=== PATIENT | female | born 1975 | race African-American/Black ===

== ENCOUNTER 2016-06-02 10:44 | Emergency (ER) | payer OTHER, SELFPAY ==
[2016-06-02] MEDS ORDERED: Dexamethasone 20 MG/5 ML VIAL ONE (11:28)
--- NOTE | 2016-06-02 11:56 | RAD ---
PA AND LATERAL VIEWS OF CHEST: Date: 06/02/16 HISTORY: Dyspnea, cough. FINDINGS: Comparison made with exam of 01/03/16. The heart size is normal. The lungs are well expanded without focal areas of consolidation, pneumoth orax, or pleural effusions. There are degenerative changes in the spine. IMPRESSION: No radiographic evidence of acute cardiopulmonary process. POS: [facility]
== END 2016-06-02 12:07 | disposition home or self-care (01) ==
LOC: NAV ERS 10:44
DX: J20.9 Acute bronchitis, unspecified (principal); I10 Essential (primary) hypertension; E11.9 Type 2 diabetes mellitus without complications; Z79.4 Long term (current) use of insulin; Z79.899 Other long term (current) drug therapy; G43.909 Migraine, unspecified, not intractable, without status migrainosus
CPT/HCPCS: 71020; 96372; J1100

== ENCOUNTER 2016-06-07 15:21 | Emergency (ER) | payer OTHER ==
[~2016-06-07 15:21] MED LIST: Iopamidol 370 76% 100 ML VIAL ONE
[2016-06-07] MEDS ORDERED: Ketorolac Tromethamine 30 MG/ML VIAL ONE (15:43)
[2016-06-07] MEDS ORDERED: Sodium Chloride 0.9% 1,000 ML ONE (15:43)
[2016-06-07] MEDS ORDERED: Acetaminophen 500 MG TAB ONE (15:43)
--- NOTE | 2016-06-07 16:06 | RAD ---
PA AND LATERAL CHEST: Comparison: 06-02-16 History: Cough, body aches. FINDINGS: Heart size appears borderline to minimally enlarged. The mediastinum appears unremarkable. The jackie gs are clear of infiltrates. IMPRESSION: Borderline heart size. POS: [facility]
[2016-06-07 16:11] LABS: Bilirubin Negative (Negative); Blood, Urine Trace (Negative); Glucose, Urine (Dipstick) Negative (Negative); Ketone, Urine Negative (Negative); Nitrite Negative (Negative); Protein, Urine (Dipstick) Negative (Neg-Trace); Urobilinogen 0.2 mg/dL (0.2-1.0)
[2016-06-07 16:18] LABS: Lactic Acid - Sepsis 1.8 mmol/L (0.5-2.2)
[2016-06-07 16:21] LABS: Bacteria/HPF 2+ HPF (None Seen); RBC/HPF 0-3 HPF (0-3); Squamous Epithelial 21-50 HPF (0-3); WBC/HPF None Seen HPF (0-3)
[2016-06-07 16:23] LABS: ALT (SGPT) 12 U/L (0-55); AST (SGOT) 11 U/L (5-34); Alkaline Phosphatase 71 U/L (40-150); Anion Gap 14 mmol/L (10-20); BUN (Urea Nitrogen) 9 mg/dL (7.0-18.7); Bilirubin, Total 0.7 mg/dL (0.2-1.2); Calc. Creatinine Clearance 0 mL/min (70-130); Calcium 8.6 mg/dL (7.8-10.44); Carbon Dioxide 24 mmol/L (22-29); Chloride 105 mmol/L (98-107); Estimated GFR-MDRD Greater than 90; Globulin 3.3 g/dL (2.4-3.5); Lipase 18 U/L (8-78); Protein, Total 6.7 g/dL (6.0-8.3)
[2016-06-07 16:28] LABS: #Lymphocytes 0.9 thou/uL (1.20-3.40); #Monocytes 0.5 thou/uL (0.11-0.59); #Neutrophils 4.4 thou/uL (1.40-6.50); %Basophils 0.4 % (0.0-1.0); %Eosinophils 0.3 % (0.0-10.0); %Lymphocytes 14.8 % (21.0-51.0); %Monocytes 8.1 % (0.0-10.0); Hematocrit 33.3 % (36.0-47.0); Hypochromia SLIGHT = 6-15 cells (100X) (0-5/hpf); Mean Platelet Volume 6.8 fL (7.4-10.4); Microcytosis SLIGHT = 6-15 cells (100X) (0-5/hpf); Polychromasia SLIGHT = 2-3 cells (100X) (0-2/hpf); Red Blood Cell (RBC) Count 4.39 mill/uL (4.20-5.40); White Blood Cell (WBC) Count 5.8 thou/uL (4.8-10.8)
--- NOTE | 2016-06-07 18:35 | CT ---
ABDOMEN AND PELVIC CT SCAN WITH IV CONTRAST: 06/07/16 HISTORY: 41-year-old female with cough and bodyaches. History of diverticulitis, patient did have some nausea and vomiting at the time of injection. Postcontrast imaging of the abdomen and pelvis is performed. There is slight delay in the initiating the scan because of the patient's nausea and vomiting at the time of injection resulting in dense c ontrast opacification of the renal collecting systems and ureters and bladder. The visualized liver, gallbladder, pancreas, spleen, adrenal glands are unremarkable. Nonobstructing renal calculi cannot be excluded because of the dense contrast. There is no evidence for obstructin g calculus. Normal appearing appendix. Unremarkable uterus and adnexa. No abscess or abnormal flu id collection. IMPRESSION: Unremarkable abdomen and pelvic CT scan. POS: [facility]
[2016-06-07] MEDS ORDERED: Amoxicillin/Potassium Clav 875 MG TAB ONE (18:59)
== END 2016-06-07 19:02 | disposition home or self-care (01) ==
LOC: NAV ERS 15:21
DX: M54.5 Low back pain (principal); R10.13 Epigastric pain; R10.11 Right upper quadrant pain; E11.9 Type 2 diabetes mellitus without complications; I10 Essential (primary) hypertension; G43.909 Migraine, unspecified, not intractable, without status migrainosus; Z79.4 Long term (current) use of insulin; Z79.84 Long term (current) use of oral hypoglycemic drugs
CPT/HCPCS: 71020; 74177; 80053; 81003; 81015; 83605; 83690; 85025; 87086; 96361; 96374; J1885; J7050

== ENCOUNTER 2016-09-12 12:16 | Emergency (ER) | payer MEDICAID, OTHER ==
[2016-09-12] MEDS ORDERED: Ketorolac Tromethamine 30 MG/ML VIAL ONE ×2 (12:39→12:40)
--- NOTE | 2016-09-12 14:01 | RAD ---
TWO VIEWS OF THE CHEST: COMPARISON: 06/07/16. HISTORY: Cough for 2 weeks. FINDINGS: Two views of the chest show normal sized cardiomediastinal silhouette. There is no evidence of conso lidation, mass, or pleural effusion. Degenerative changes are seen in the spine. IMPRESSION: No evidence of acute cardiopulmonary disease. POS: [facility]
== END 2016-09-12 13:22 | disposition home or self-care (01) ==
LOC: NAV ERS 12:16
DX: G89.29 Other chronic pain (principal); J06.9 Acute upper respiratory infection, unspecified; M54.5 Low back pain; E78.5 Hyperlipidemia, unspecified; E78.00 Pure hypercholesterolemia, unspecified; I10 Essential (primary) hypertension; E66.9 Obesity, unspecified; E11.9 Type 2 diabetes mellitus without complications; Z79.899 Other long term (current) drug therapy; Z79.4 Long term (current) use of insulin
CPT/HCPCS: 71020; 96372; J1885

== ENCOUNTER 2016-11-28 21:32 | Emergency (ER) | payer SELFPAY ==
[2016-11-28] MEDS ORDERED: HYDROcodone/Acetaminophen 5/325 mg Tablet ONE (21:54)
[2016-11-28] MEDS ORDERED: Orphenadrine Citrate 60 MG/2 ML VIAL ONE (21:54)
[2016-11-28] MEDS ORDERED: predniSONE 20 MG TAB ONE (21:55)
== END 2016-11-28 22:19 | disposition home or self-care (01) ==
LOC: NAV ERS 21:32
DX: M32.9 Systemic lupus erythematosus, unspecified (principal); E11.8 Type 2 diabetes mellitus with unspecified complications; E78.5 Hyperlipidemia, unspecified; I10 Essential (primary) hypertension; E66.9 Obesity, unspecified; G43.909 Migraine, unspecified, not intractable, without status migrainosus; Z79.899 Other long term (current) drug therapy; Z79.4 Long term (current) use of insulin
CPT/HCPCS: 36416; 96372; J2360; J7506

== ENCOUNTER 2017-01-03 21:53 | Emergency (ER) | payer SELFPAY ==
[2017-01-03] MEDS ORDERED: Ketorolac Tromethamine 30 MG/ML VIAL ONE (22:27)
--- NOTE | 2017-01-03 22:33 | RAD ---
PORTABLE AP CHEST X-RAY: 01/03/17 HISTORY: Dyspnea. Patient feels as if there is a knot in mid sternal chest region. Difficulty breathing when lying down or walking. COMPARISON: 01/03/16. FINDINGS: The cardiac silhouette and pulmonary vasculature are within normal limits. The lungs remain clear. T here has been no interval change from the prior exam. IMPRESSION: No acute cardiopulmonary process. POS: [facility]
[2017-01-03 22:43] LABS: #Eosinphils 0.1 thou/uL (0.0-0.7); #Monocytes 0.3 thou/uL (0.11-0.59); #Neutrophils 1.9 thou/uL (1.40-6.50); %Basophils 0.6 % (0.0-1.0); %Eosinophils 2.5 % (0.0-10.0); %Lymphocytes 30.9 % (21.0-51.0); %Monocytes 9.5 % (0.0-10.0); %Neutrophils 56.4 % (42.0-75.0); Hemoglobin 10.1 g/dL (12.0-16.0); Hypochromia SLIGHT = 6-15 cells (100X) (0-5/hpf); MDiff Complete? YES; Mean Corpuscular HGB CONC 31.7 g/dL (32.0-36.0); Mean Corpuscular Hemoglobin 23.7 pg (27.0-31.0); Mean Corpuscular Volume 74.7 fl (81.0-99.0); Microcytosis SLIGHT = 6-15 cells (100X) (0-5/hpf); PLT Morphology Comment Appears Adequate; Platelet Count 176 thou/uL (130-400); RBC Distribution Width 14.2 % (11.5-14.5); Red Blood Cell (RBC) Count 4.25 mill/uL (4.20-5.40); White Blood Cell (WBC) Count 3.3 thou/uL (4.8-10.8)
[2017-01-03 22:44] LABS: ALT (SGPT) 21 U/L (8-55); AST (SGOT) 27 U/L (5-34); Albumin 3.6 g/dL (3.5-5.0); Alkaline Phosphatase 90 U/L (40-150); Anion Gap 15 mmol/L (10-20); BUN (Urea Nitrogen) 7 mg/dL (7.0-18.7); Bilirubin, Total 0.4 mg/dL (0.2-1.2); CK (CPK) 119 U/L (29-168); Calc. Creatinine Clearance 0 mL/min (70-130); Calcium 8.9 mg/dL (7.8-10.44); Carbon Dioxide 21 mmol/L (22-29); Chloride 108 mmol/L (98-107); Estimated GFR-MDRD 88; Globulin 3.7 g/dL (2.4-3.5); Glucose 94 mg/dL (70-105); Potassium 3.2 mmol/L (3.5-5.1); Protein, Total 7.3 g/dL (6.0-8.3); Sodium 141 mmol/L (136-145)
[2017-01-03 22:45] LABS: CKMB 0.4 ng/mL (0-6.6); Troponin I Less than 0.010 ng/mL (< 0.028)
[2017-01-03] MEDS ORDERED: Potassium Chloride 20 MEQ TAB ONE (23:00)
== END 2017-01-03 23:08 | disposition home or self-care (01) ==
LOC: NAV ERS 21:53
DX: R07.2 Precordial pain (principal); M32.9 Systemic lupus erythematosus, unspecified; E11.9 Type 2 diabetes mellitus without complications; E78.5 Hyperlipidemia, unspecified; I10 Essential (primary) hypertension; Z79.4 Long term (current) use of insulin; Z79.52 Long term (current) use of systemic steroids; Z79.899 Other long term (current) drug therapy
CPT/HCPCS: 71010; 80053; 82550; 82553; 84484; 85025; 93005; 96374; J1885

== ENCOUNTER 2017-03-18 13:39 | Emergency (ER) | payer SELFPAY ==
[2017-03-18] MEDS ORDERED: Ketorolac Tromethamine 60 MG/2 ML VIAL ONE (13:56)
== END 2017-03-18 14:57 | disposition home or self-care (01) ==
LOC: NAV ERS 13:39
DX: B34.9 Viral infection, unspecified (principal); E11.9 Type 2 diabetes mellitus without complications; E78.5 Hyperlipidemia, unspecified; I10 Essential (primary) hypertension; G43.909 Migraine, unspecified, not intractable, without status migrainosus; Z79.4 Long term (current) use of insulin; Z79.899 Other long term (current) drug therapy
CPT/HCPCS: 96372; J1885

== ENCOUNTER 2017-03-31 22:26 | Emergency (ER) | payer SELFPAY ==
[2017-03-31] MEDS ORDERED: Ibuprofen 800 MG TAB ONE (22:47)
== END 2017-03-31 23:09 | disposition home or self-care (01) ==
LOC: NAV ERS 22:26
DX: J02.9 Acute pharyngitis, unspecified (principal); E11.9 Type 2 diabetes mellitus without complications; E78.5 Hyperlipidemia, unspecified; I10 Essential (primary) hypertension; G43.909 Migraine, unspecified, not intractable, without status migrainosus; Z79.899 Other long term (current) drug therapy
CPT/HCPCS: 87081; 87430; 99283

== ENCOUNTER 2017-04-17 14:37 | Emergency (ER) | payer SELFPAY | END 2017-04-17 15:25 | disposition home or self-care (01) | LOC: NAV ERS 14:37 | DX: J02.9 Acute pharyngitis, unspecified (principal); M32.9 Systemic lupus erythematosus, unspecified; E11.9 Type 2 diabetes mellitus without complications; E78.5 Hyperlipidemia, unspecified; I10 Essential (primary) hypertension; G43.909 Migraine, unspecified, not intractable, without status migrainosus; Z79.4 Long term (current) use of insulin; Z79.52 Long term (current) use of systemic steroids; Z79.899 Other long term (current) drug therapy | CPT/HCPCS: 87081; 87430; 99283 ==

== ENCOUNTER 2017-08-20 16:20 | Emergency (ER) | payer SELFPAY ==
[2017-08-20] MEDS ORDERED: Sodium Chloride 0.9% 1,000 ML ONE (16:56)
[2017-08-20] MEDS ORDERED: Sodium Chloride 0.9% 0 ML ONE (16:56)
[2017-08-20] MEDS ORDERED: Metoclopramide HCl 10 MG/2 ML VIAL ONE (16:56)
[2017-08-20] MEDS ORDERED: Ketorolac Tromethamine 30 MG/ML VIAL ONE (16:58)
[2017-08-20 17:11] LABS: Bilirubin Negative (Negative); Blood, Urine Negative (Negative); Glucose, Urine (Dipstick) Negative (Negative); Leukocyte Negative (Negative); Nitrite Negative (Negative); Protein, Urine (Dipstick) Negative (Neg-Trace); Urobilinogen 0.2 mg/dL (0.2-1.0)
[2017-08-20 17:14] LABS: Clarity SL HAZY (Clear)
[2017-08-20] MEDS ORDERED: diphenhydrAMINE 50 MG/ML VIAL ONE (17:14)
[2017-08-20 17:25] LABS: PTT 26.9 SEC (22.9-36.1)
[2017-08-20 17:26] LABS: #Lymphocytes 0.9 thou/uL (1.20-3.40); #Monocytes 0.4 thou/uL (0.11-0.59); #Neutrophils 3.1 thou/uL (1.40-6.50); %Basophils 0.4 % (0.0-1.0); %Eosinophils 0.7 % (0.0-10.0); %Lymphocytes 19.8 % (21.0-51.0); %Monocytes 8.7 % (0.0-10.0); %Neutrophils 70.5 % (42.0-75.0); Mean Corpuscular Hemoglobin 23.3 pg (27.0-31.0); Mean Corpuscular Volume 75.3 fl (81.0-99.0); Mean Platelet Volume 8.7 fL (7.4-10.4); Platelet Count 156 thou/uL (130-400); RBC Distribution Width 14.4 % (11.5-14.5); Red Blood Cell (RBC) Count 5.14 mill/uL (4.20-5.40); White Blood Cell (WBC) Count 4.4 thou/uL (4.8-10.8)
[2017-08-20 17:28] LABS: BHCG - Serum Negative (NEGATIVE); Pregs Control Bar Appear? YES (CONTROL BAR)
[2017-08-20 17:35] LABS: ALT (SGPT) 17 U/L (8-55); AST (SGOT) 18 U/L (5-34); Albumin 3.9 g/dL (3.5-5.0); Alkaline Phosphatase 91 U/L (40-150); Anion Gap 15 mmol/L (10-20); BUN (Urea Nitrogen) 11 mg/dL (7.0-18.7); Bilirubin, Total 0.6 mg/dL (0.2-1.2); Calc. Creatinine Clearance 0 mL/min (70-130); Calcium 9.5 mg/dL (7.8-10.44); Carbon Dioxide 24 mmol/L (22-29); Chloride 103 mmol/L (98-107); Estimated GFR-MDRD 90; Globulin 4.3 g/dL (2.4-3.5); Glucose 79 mg/dL (70-105); Potassium 3.6 mmol/L (3.5-5.1); Protein, Total 8.2 g/dL (6.0-8.3); Sodium 138 mmol/L (136-145)
--- NOTE | 2017-08-20 18:20 | CT ---
NONCONTRAST CT HEAD: Date: 08/20/17 HISTORY: Headache. COMPARISON: 08/24/15. FINDINGS: There is no evidence of a hemorrhage, acute infarction, mass effect, or midline shift. Ventricular sy stem is stable in size and appearance compared to prior exam. There has been no interval change from prior study. IMPRESSION: No acute intracranial abnormality is demonstrated. POS: [facility]
== END 2017-08-20 18:05 | disposition home or self-care (01) ==
LOC: NAV ERS 16:20
DX: R51 Headache (principal); E11.9 Type 2 diabetes mellitus without complications; I10 Essential (primary) hypertension; M35.9 Systemic involvement of connective tissue, unspecified; M32.9 Systemic lupus erythematosus, unspecified; Z79.899 Other long term (current) drug therapy
CPT/HCPCS: 70450; 80053; 81003; 84703; 85025; 85610; 85730; 96361; 96374; 96375; J1200; J1885; J2765; J7050

== ENCOUNTER 2017-09-25 14:15 | Emergency (ER) | payer SELFPAY ==
[2017-09-25] MEDS ORDERED: predniSONE 20 MG TAB ONE (15:14)
[2017-09-25] MEDS ORDERED: HYDROcodone/Acetaminophen 5/325 mg Tablet ONE (15:14)
[2017-09-25 15:46] LABS: #Lymphocytes 0.8 thou/uL (1.20-3.40); #Monocytes 0.6 thou/uL (0.11-0.59); #Neutrophils 3.5 thou/uL (1.40-6.50); %Basophils 0.6 % (0.0-1.0); %Eosinophils 0.1 % (0.0-10.0); %Neutrophils 70.4 % (42.0-75.0); Anisocytosis SLIGHT = 6-15 cells (100X) (0-5/hpf); Hypochromia SLIGHT = 6-15 cells (100X) (0-5/hpf); MDiff Complete? YES; Mean Corpuscular Hemoglobin 23.5 pg (27.0-31.0); Mean Corpuscular Volume 75.8 fl (81.0-99.0); Mean Platelet Volume 9.6 fL (7.4-10.4); Microcytosis SLIGHT = 6-15 cells (100X) (0-5/hpf); PLT Morphology Comment Appears Adequate; Platelet Count 179 thou/uL (130-400); Poikilocytosis SLIGHT = 6-15 cells (100X) (0-5/hpf); RBC Distribution Width 14.3 % (11.5-14.5); White Blood Cell (WBC) Count 4.9 thou/uL (4.8-10.8)
[2017-09-25 15:47] LABS: ALT (SGPT) 13 U/L (8-55); AST (SGOT) 15 U/L (5-34); Albumin 3.8 g/dL (3.5-5.0); Alkaline Phosphatase 77 U/L (40-150); Anion Gap 13 mmol/L (10-20); BUN (Urea Nitrogen) 13 mg/dL (7.0-18.7); Bilirubin, Total 0.4 mg/dL (0.2-1.2); Calc. Creatinine Clearance 0 mL/min (70-130); Calcium 9.2 mg/dL (7.8-10.44); Carbon Dioxide 25 mmol/L (22-29); Chloride 103 mmol/L (98-107); Estimated GFR-MDRD 87; Globulin 4.3 g/dL (2.4-3.5); Glucose 74 mg/dL (70-105); Potassium 3.4 mmol/L (3.5-5.1); Protein, Total 8.1 g/dL (6.0-8.3); Sodium 138 mmol/L (136-145)
[2017-09-25 15:51] LABS: CKMB 0.3 ng/mL (0-6.6); Troponin I Less than 0.010 ng/mL (< 0.028)
--- NOTE | 2017-09-25 15:54 | RAD ---
PORTABLE AP CHEST X-RAY: 09/25/2017 HISTORY: Difficulty breathing and chest tightness. Symptoms started this morning and are intermittent. COMPARISON: 01/03/2017 FINDINGS: The cardiac silhouette and the bronchovascular markings are accentuated by the shallow depth of inspi ration and the portable technique. The lungs remain clear. There has been no interval change from t he prior exam. IMPRESSION: No acute cardiopulmonary process. POS: [facility]
== END 2017-09-25 16:35 | disposition home or self-care (01) ==
LOC: NAV ERS 14:15
DX: M32.9 Systemic lupus erythematosus, unspecified (principal); E11.9 Type 2 diabetes mellitus without complications; I10 Essential (primary) hypertension; Z79.899 Other long term (current) drug therapy; Z79.4 Long term (current) use of insulin
CPT/HCPCS: 36415; 71045; 80053; 82553; 84484; 85025; 93005; J7506

== ENCOUNTER 2017-10-13 21:57 | Emergency (ER) | payer SELFPAY ==
[2017-10-13] MEDS ORDERED: AMOXicillin 250 MG CAP ONE (22:11)
== END 2017-10-13 22:16 | disposition home or self-care (01) ==
LOC: NAV ERS 21:57
DX: J06.9 Acute upper respiratory infection, unspecified (principal); I10 Essential (primary) hypertension; E11.9 Type 2 diabetes mellitus without complications; Z79.4 Long term (current) use of insulin; Z79.899 Other long term (current) drug therapy
CPT/HCPCS: 99283

== ENCOUNTER 2017-11-02 19:26 | Emergency (ER) | payer SELFPAY ==
--- NOTE | 2017-11-02 20:00 | RAD ---
CHEST TWO VIEW 11/02/17 HISTORY: Lupus, flu-like symptoms. COMPARISON: Radiographs 2017. FINDINGS: The lungs are clear. No pneumothorax or effusion. The cardiac silhouette and mediastinal contours are within normal limits. IMPRESSION: No acute intrathoracic abnormality. POS: [facility]
[2017-11-02] MEDS ORDERED: Ketorolac Tromethamine 30 MG/ML VIAL ONE (20:01)
== END 2017-11-02 20:30 | disposition home or self-care (01) ==
LOC: NAV ERS 19:26
DX: J20.9 Acute bronchitis, unspecified (principal); M32.9 Systemic lupus erythematosus, unspecified; K12.1 Other forms of stomatitis; E11.9 Type 2 diabetes mellitus without complications; I10 Essential (primary) hypertension; E66.9 Obesity, unspecified; Z79.4 Long term (current) use of insulin; Z79.899 Other long term (current) drug therapy
CPT/HCPCS: 71046; 96372; J1885

== ENCOUNTER 2018-05-15 20:12 | Emergency (ER) | payer SELFPAY ==
[2018-05-15] MEDS ORDERED: Ondansetron ODT 4 MG TAB ONE (21:06)
[2018-05-15] MEDS ORDERED: AMOXicillin 250 MG CAP ONE (21:29)
== END 2018-05-15 21:35 | disposition home or self-care (01) ==
LOC: NAV ERS 20:12
DX: J01.90 Acute sinusitis, unspecified (principal); E11.9 Type 2 diabetes mellitus without complications; I10 Essential (primary) hypertension; Z79.899 Other long term (current) drug therapy
CPT/HCPCS: 87804; 99283; Q0162

== ENCOUNTER 2018-05-26 12:01 | Emergency (ER) | payer SELFPAY | END 2018-05-26 12:50 | disposition home or self-care (01) | LOC: NAV ERS 12:01 | DX: J01.90 Acute sinusitis, unspecified (principal); E11.9 Type 2 diabetes mellitus without complications; I10 Essential (primary) hypertension; E66.9 Obesity, unspecified; Z79.4 Long term (current) use of insulin; Z79.899 Other long term (current) drug therapy | CPT/HCPCS: 99283 ==

== ENCOUNTER 2018-11-10 17:53 | Emergency (ER) | payer SELFPAY | END 2018-11-10 19:26 | disposition home or self-care (01) | LOC: NAV ERS 17:53 | DX: J20.9 Acute bronchitis, unspecified (principal); J06.9 Acute upper respiratory infection, unspecified; R21 Rash and other nonspecific skin eruption; E11.9 Type 2 diabetes mellitus without complications; I10 Essential (primary) hypertension; E66.9 Obesity, unspecified; Z79.4 Long term (current) use of insulin; Z79.899 Other long term (current) drug therapy | CPT/HCPCS: 87081; 87430; 87804; 99283 ==

== ENCOUNTER 2018-11-25 21:11 | Emergency (ER) | payer SELFPAY | END 2018-11-25 21:30 | disposition home or self-care (01) | LOC: NAV ERS 21:11 | DX: S91.301A Unspecified open wound, right foot, initial encounter (principal); E11.9 Type 2 diabetes mellitus without complications; Z79.4 Long term (current) use of insulin; I10 Essential (primary) hypertension; E66.9 Obesity, unspecified; Z79.899 Other long term (current) drug therapy; Z79.52 Long term (current) use of systemic steroids; X58.XXXA Exposure to other specified factors, initial encounter | CPT/HCPCS: 99283 ==

== ENCOUNTER 2018-12-09 00:01 | Emergency (ER) | payer SELFPAY ==
[2018-12-09] MEDS ORDERED: Ondansetron PF 4 MG/2 ML Vial ONE (00:30)
[2018-12-09 00:31] LABS: Bilirubin Negative (Negative); Blood, Urine Moderate (Negative); Clarity Clear (Clear); Glucose, Urine (Dipstick) Negative (Negative); Leukocyte Negative (Negative); Nitrite Negative (Negative); Protein, Urine (Dipstick) Negative (Neg-Trace); Urobilinogen 0.2 mg/dL (Less than 2)
[2018-12-09 00:36] LABS: Bacteria/HPF None Seen HPF (None Seen); RBC/HPF 21-50 HPF (0-3); WBC/HPF 0-3 HPF (0-3)
[2018-12-09 00:46] LABS: #Basophils 0.1 thou/uL (0.0-0.2); #Lymphocytes 1.1 thou/uL (1.20-3.40); #Monocytes 0.5 thou/uL (0.11-0.59); #Neutrophils 3.5 thou/uL (1.40-6.50); %Eosinophils 0.5 % (0.0-10.0); %Monocytes 9.4 % (0.0-10.0); Hemoglobin 11.2 g/dL (12.0-16.0); Hypochromia SLIGHT = 6-15 cells (100X) (0-5/hpf); MDiff Complete? YES; Mean Corpuscular HGB CONC 31.1 g/dL (32.0-36.0); Mean Corpuscular Hemoglobin 23.7 pg (27.0-31.0); Mean Corpuscular Volume 76.3 fL (78.0-98.0); Mean Platelet Volume 6.5 fL (7.4-10.4); Ovalocytes SLIGHT = 2-5 cells (100X) (0-1/hpf); Platelet Count 216 thou/uL (130-400); Platelet Morphology Comment Appears Adequate; RBC Distribution Width 14.6 % (11.5-14.5); Spherocytes SLIGHT = 1-5 cells (100X) (None Seen); Stomatocytes SLIGHT = 2-5 cells (100X) (0-1/hpf); Target Cells SLIGHT = 2-5 cells (100X) (0-1/hpf); White Blood Cell (WBC) Count 5.1 thou/uL (4.8-10.8)
[2018-12-09 00:50] LABS: ALT (SGPT) 16 U/L (8-55); AST (SGOT) 18 U/L (5-34); Albumin 4.2 g/dL (3.5-5.0); Alkaline Phosphatase 69 U/L (40-150); Anion Gap 16 mmol/L (10-20); BUN (Urea Nitrogen) 11 mg/dL (7.0-18.7); Bilirubin, Total 0.5 mg/dL (0.2-1.2); Calc. Creatinine Clearance 0 mL/min (70-130); Calcium 9.5 mg/dL (7.8-10.44); Carbon Dioxide 19 mmol/L (22-29); Chloride 107 mmol/L (98-107); Estimated GFR-MDRD 83; Globulin 3.8 g/dL (2.4-3.5); Glucose 98 mg/dL (70-105); Lipase 24 U/L (8-78); Potassium 3.9 mmol/L (3.5-5.1); Sodium 138 mmol/L (136-145)
[2018-12-09] MEDS ORDERED: Sodium Chloride 0.9% 1,000 ML BAG ONE (09:00)
== END 2018-12-09 01:12 | disposition home or self-care (01) ==
LOC: NAV ERS 00:01
DX: R11.2 Nausea with vomiting, unspecified (principal); R10.9 Unspecified abdominal pain; R19.7 Diarrhea, unspecified; R31.29 Other microscopic hematuria; E11.9 Type 2 diabetes mellitus without complications; I10 Essential (primary) hypertension; E66.9 Obesity, unspecified; Z79.899 Other long term (current) drug therapy; Z79.4 Long term (current) use of insulin
CPT/HCPCS: 36415; 80053; 81003; 81015; 83690; 85025; 96361; 96374; J2405; J7050

== ENCOUNTER 2019-01-09 19:23 | Emergency (ER) | payer BC, SELFPAY ==
[2019-01-09] MEDS ORDERED: predniSONE 20 MG TAB ONE (20:12)
== END 2019-01-09 20:18 | disposition home or self-care (01) ==
LOC: NAV ERS 19:23
DX: B37.0 Candidal stomatitis (principal); M32.9 Systemic lupus erythematosus, unspecified; E11.9 Type 2 diabetes mellitus without complications; I10 Essential (primary) hypertension; E66.9 Obesity, unspecified; Z79.899 Other long term (current) drug therapy; Z79.51 Long term (current) use of inhaled steroids; Z79.4 Long term (current) use of insulin
CPT/HCPCS: 99283; J7512

== ENCOUNTER 2019-02-08 15:17 | Emergency (ER) | payer BC ==
[2019-02-08] MEDS ORDERED: Ondansetron ODT 4 MG TAB ONE (15:36)
[2019-02-08] MEDS ORDERED: Ibuprofen 800 MG TAB ONE (15:37)
== END 2019-02-08 15:53 | disposition home or self-care (01) ==
LOC: NAV ERS 15:17
DX: J06.9 Acute upper respiratory infection, unspecified (principal); B34.9 Viral infection, unspecified; R11.2 Nausea with vomiting, unspecified; E11.9 Type 2 diabetes mellitus without complications; I10 Essential (primary) hypertension; E66.9 Obesity, unspecified; Z79.4 Long term (current) use of insulin
CPT/HCPCS: 87804; J7620; Q0162

== ENCOUNTER 2019-06-15 09:18 | Emergency (ER) | payer BC | END 2019-06-15 10:03 | disposition home or self-care (01) | LOC: NAV ERS 09:18 | DX: A08.4 Viral intestinal infection, unspecified (principal); E11.9 Type 2 diabetes mellitus without complications; I10 Essential (primary) hypertension; E66.9 Obesity, unspecified; Z79.4 Long term (current) use of insulin; Z79.899 Other long term (current) drug therapy | CPT/HCPCS: 99283 ==

== ENCOUNTER 2019-07-01 17:17 | Emergency (ER) | payer BC ==
[2019-07-01] MEDS ORDERED: Acetaminophen 500 MG TAB ONE (17:48)
[2019-07-01] MEDS ORDERED: Ondansetron ODT 4 MG TAB ONE (17:51)
[2019-07-01] MEDS ORDERED: Ibuprofen 200 MG TAB ONE (19:02)
== END 2019-07-01 19:10 | disposition home or self-care (01) ==
LOC: NAV ERS 17:17
DX: J06.9 Acute upper respiratory infection, unspecified (principal); R11.2 Nausea with vomiting, unspecified; E11.9 Type 2 diabetes mellitus without complications; I10 Essential (primary) hypertension; Z79.899 Other long term (current) drug therapy
CPT/HCPCS: 36416; 87804; 99283; Q0162

== ENCOUNTER 2019-08-10 15:36 | Emergency (ER) | payer BC ==
[2019-08-10] MEDS ORDERED: Sodium Chloride 0.9% 1,000 ML ONE ×2 (16:16→17:18)
[2019-08-10] MEDS ORDERED: Pantoprazole 40 MG VIAL ONE (16:17)
[2019-08-10] MEDS ORDERED: Ondansetron PF 4 MG/2 ML Vial ONE (16:17)
[2019-08-10 16:42] LABS: #Lymphocytes 1.1 thou/uL (1.20-3.40); #Monocytes 0.4 thou/uL (0.11-0.59); #Neutrophils 4.4 thou/uL (1.40-6.50); %Basophils 0.5 % (0.0-1.0); %Eosinophils 0.1 % (0.0-10.0); %Neutrophils 73.4 % (42.0-75.0); Hemoglobin 11.4 g/dL (12.0-16.0); Mean Corpuscular HGB CONC 30.6 g/dL (32.0-36.0); Mean Corpuscular Hemoglobin 23.9 pg (27.0-31.0); Mean Corpuscular Volume 78.3 fL (78.0-98.0); Platelet Count 192 thou/uL (130-400); RBC Distribution Width 14.9 % (11.5-14.5); Red Blood Cell (RBC) Count 4.77 mill/uL (4.20-5.40)
[2019-08-10 16:43] LABS: Bilirubin Negative (Negative); Blood, Urine Trace (Negative); Clarity Clear (Clear); Glucose, Urine (Dipstick) >=1000 mg/dL (Negative); Leukocyte Negative (Negative); Nitrite Negative (Negative); Protein, Urine (Dipstick) Negative (Neg-Trace); Urobilinogen 0.2 mg/dL (Less than 2)
[2019-08-10 16:57] LABS: ALT (SGPT) 14 U/L (8-55); AST (SGOT) 11 U/L (5-34); Albumin 3.7 g/dL (3.5-5.0); Alkaline Phosphatase 115 U/L (40-110); Anion Gap 19 mmol/L (10-20); BUN (Urea Nitrogen) 12 mg/dL (7.0-18.7); Bilirubin, Total 0.5 mg/dL (0.2-1.2); Calc. Creatinine Clearance 0 mL/min (70-130); Calcium 9.3 mg/dL (7.8-10.44); Carbon Dioxide 23 mmol/L (22-29); Chloride 95 mmol/L (98-107); Estimated GFR-MDRD 44; Globulin 3.3 g/dL (2.4-3.5); Potassium 4.4 mmol/L (3.5-5.1); Sodium 133 mmol/L (136-145)
[2019-08-10 16:58] LABS: Glucose 669 mg/dL (70-105)
[2019-08-10 17:08] LABS: Bacteria/HPF None Seen HPF (None Seen); RBC/HPF 0-3 HPF (0-3); WBC/HPF 0-3 HPF (0-3); Yeast-Budding Rare HPF (None Seen)
[2019-08-10] MEDS ORDERED: Sodium Chloride 0.9% 0 ML ONE (17:18)
[2019-08-10] MEDS ORDERED: metFORMIN 500 MG TAB ONE (17:21)
[2019-08-10] MEDS ORDERED: Insulin Regular 300 UNITS/3 ML VIAL ONE (17:21)
[2019-08-10 17:53] LABS: MDiff Complete? YES; Microcytosis SLIGHT = 6-15 cells (100X) (0-5/hpf); Platelet Morphology Comment Appears Adequate
== END 2019-08-10 18:45 | disposition home or self-care (01) ==
LOC: NAV ERS 15:36
DX: K29.70 Gastritis, unspecified, without bleeding (principal); B37.3 Candidiasis of vulva and vagina; E11.65 Type 2 diabetes mellitus with hyperglycemia; I10 Essential (primary) hypertension; Z79.899 Other long term (current) drug therapy; Z79.4 Long term (current) use of insulin
CPT/HCPCS: 36416; 80053; 81003; 81015; 82010; 84484; 85025; 93005; 96361; 96365; 96368; C9113; J1815; J2405; J3490; J7050

== ENCOUNTER 2019-12-14 19:18 | Emergency (ER) | payer BC, SELFPAY ==
[2019-12-14] MEDS ORDERED: methylPREDNISolone Sod Succ/PF 125 MG/2 ML VIAL ONE (19:48)
== END 2019-12-14 20:15 | disposition home or self-care (01) ==
LOC: NAV ERS 19:18
DX: T78.40XA Allergy, unspecified, initial encounter (principal); E11.9 Type 2 diabetes mellitus without complications; I10 Essential (primary) hypertension; Z79.4 Long term (current) use of insulin; Z79.899 Other long term (current) drug therapy
CPT/HCPCS: 96372; 99283; J2930

== ENCOUNTER 2020-06-18 15:25 | Emergency (ER) | payer SELFPAY ==
[2020-06-18] MEDS ORDERED: HYDROcodone/Acetaminophen 10/325 mg Tablet ONE (16:00)
== END 2020-06-18 17:21 | disposition home or self-care (01) ==
LOC: NAV ERS 15:25
DX: S93.431A Sprain of tibiofibular ligament of right ankle, initial encounter (principal); S83.91XA Sprain of unspecified site of right knee, initial encounter; M32.9 Systemic lupus erythematosus, unspecified; E11.9 Type 2 diabetes mellitus without complications; I10 Essential (primary) hypertension; Z79.899 Other long term (current) drug therapy; Z79.4 Long term (current) use of insulin; X50.1XXA Overexertion from prolonged static or awkward postures, initial encounter; W19.XXXA Unspecified fall, initial encounter

== ENCOUNTER 2020-06-21 20:35 | Emergency (ER) | payer SELFPAY ==
[2020-06-21] MEDS ORDERED: Ondansetron ODT 4 MG TAB ONE (22:08)
[2020-06-21] MEDS ORDERED: Morphine 4 MG/ML VIAL ONE (22:08)
== END 2020-06-21 22:43 | disposition home or self-care (01) ==
LOC: NAV ERS 20:35
DX: S83.91XA Sprain of unspecified site of right knee, initial encounter (principal); E11.9 Type 2 diabetes mellitus without complications; M32.9 Systemic lupus erythematosus, unspecified; I10 Essential (primary) hypertension; Z79.4 Long term (current) use of insulin; Z79.899 Other long term (current) drug therapy; W19.XXXA Unspecified fall, initial encounter
CPT/HCPCS: 96372; 99283; J2270; Q0162

== ENCOUNTER 2020-09-30 03:25 | Emergency (ER) | payer SELFPAY ==
[2020-09-30] MEDS ORDERED: Cephalexin 250 MG CAP ONE (03:51)
== END 2020-09-30 04:03 | disposition home or self-care (01) ==
LOC: NAV ERS 03:25
DX: H00.015 Hordeolum externum left lower eyelid (principal); E11.9 Type 2 diabetes mellitus without complications; I10 Essential (primary) hypertension; Z79.4 Long term (current) use of insulin; Z79.899 Other long term (current) drug therapy
CPT/HCPCS: 99283

== ENCOUNTER 2020-10-14 20:21 | Emergency (ER) | payer SELFPAY ==
[2020-10-14] MEDS ORDERED: Lidocaine 1% (PF) 30 ML VIAL ONE (20:37)
[2020-10-14] MEDS ORDERED: Sulfameth/Trimethoprim DS 800-160mg TAB ONE (21:09)
[2020-10-14] MEDS ORDERED: Insulin Regular 300 UNITS/3 ML VIAL ONE (21:22)
[2020-10-14] MEDS ORDERED: Sodium Chloride 0.9% 2,000 ML ONE (21:22)
[2020-10-14 21:33] LABS: Hemoglobin 12.4 g/dL (12.0-16.0); Mean Corpuscular HGB CONC 29.9 g/dL (32.0-36.0); Mean Corpuscular Hemoglobin 22.8 pg (27.0-31.0); Mean Corpuscular Volume 76.3 fL (78.0-98.0); Mean Platelet Volume 8.9 fL (7.4-10.4); Platelet Count 229 thou/uL (130-400); Red Blood Cell (RBC) Count 5.45 mill/uL (4.20-5.40); White Blood Cell (WBC) Count 10.1 thou/uL (4.8-10.8)
[2020-10-14 21:35] LABS: %Eosinophils 0.3 % (0.0-10.0); %Lymphocytes 13.8 % (21.0-51.0); %Monocytes 2.4 % (0.0-10.0)
[2020-10-14 21:36] LABS: #Basophils 0.1 thou/uL (0.0-0.2); #Lymphocytes 1.4 thou/uL (1.20-3.40); #Monocytes 0.2 thou/uL (0.11-0.59); #Neutrophils 8.4 thou/uL (1.40-6.50); %Basophils 0.5 % (0.0-1.0)
[2020-10-14 21:42] LABS: ALT (SGPT) 16 U/L (8-55); AST (SGOT) 10 U/L (5-34); Albumin 3.6 g/dL (3.5-5.0); Alkaline Phosphatase 119 U/L (40-110); Anion Gap 16 mmol/L (10-20); BUN (Urea Nitrogen) 15 mg/dL (7.0-18.7); Bilirubin, Total 0.4 mg/dL (0.2-1.2); Calc. Creatinine Clearance 0 mL/min (70-130); Calcium 9.3 mg/dL (7.8-10.44); Carbon Dioxide 22 mmol/L (22-29); Chloride 104 mmol/L (98-107); Globulin 4.1 g/dL (2.4-3.5); Glucose 391 mg/dL (70-105); Potassium 3.3 mmol/L (3.5-5.1); Protein, Total 7.7 g/dL (6.0-8.3); Sodium 139 mmol/L (136-145)
[2020-10-14 21:53] LABS: Bilirubin Negative (Negative); Blood, Urine Negative (Negative); Clarity Clear (Clear); Glucose, Urine (Dipstick) >=1000 mg/dL (Negative); Ketone, Urine Negative (Negative); Leukocyte Negative (Negative); Nitrite Negative (Negative); Protein, Urine (Dipstick) Negative (Neg-Trace); Specific Gravity, Urine 1.015 (1.005-1.030); Urobilinogen 0.2 mg/dL (Less than 2)
== END 2020-10-14 23:19 | disposition home or self-care (01) ==
LOC: NAV ERS 20:21
DX: L02.215 Cutaneous abscess of perineum (principal); E11.65 Type 2 diabetes mellitus with hyperglycemia; E86.9 Volume depletion, unspecified; I10 Essential (primary) hypertension; Z79.4 Long term (current) use of insulin; Z79.899 Other long term (current) drug therapy
CPT/HCPCS: 36416; 56405; 80053; 81003; 85025; 87070; 87077; 87186; 87205; J1815; J2001; J7050

== ENCOUNTER 2021-02-13 04:45 | Emergency (ER) | payer SELFPAY | END 2021-02-13 05:26 | disposition home or self-care (01) | LOC: NAV ERS 04:45 | DX: J02.9 Acute pharyngitis, unspecified (principal); E11.9 Type 2 diabetes mellitus without complications; I10 Essential (primary) hypertension; Z79.4 Long term (current) use of insulin; Z79.52 Long term (current) use of systemic steroids | CPT/HCPCS: 87081; 87430; 99283 ==

== ENCOUNTER 2021-03-30 13:51 | Emergency (ER) | payer SELFPAY | END 2021-03-30 14:40 | disposition home or self-care (01) | LOC: NAV ERS 13:51 | DX: J21.0 Acute bronchiolitis due to respiratory syncytial virus (principal); I10 Essential (primary) hypertension; E11.9 Type 2 diabetes mellitus without complications; Z79.4 Long term (current) use of insulin; Z79.899 Other long term (current) drug therapy | CPT/HCPCS: 93005 ==

== ENCOUNTER 2021-04-25 12:24 | Emergency (ER) | payer BC, SELFPAY ==
[2021-04-25] MEDS ORDERED: Sodium Chloride 0.9% 1,000 ML ONE (12:50)
[2021-04-25] MEDS ORDERED: Sodium Chloride 0.9% 0 ML ONE (12:50)
[2021-04-25] MEDS ORDERED: Promethazine HCl 25 MG/ML VIAL ONE (12:50)
[2021-04-25] MEDS ORDERED: Pantoprazole 40 MG VIAL ONE ×2 (12:50→12:56)
[2021-04-25] MEDS ORDERED: Sodium Chloride 0.9% 100 ML ONE (12:52)
[2021-04-25 13:13] LABS: Prothrombin Time 12.9 sec (12.0-14.7)
[2021-04-25 13:14] LABS: PTT 29.5 sec (22.9-36.1)
[2021-04-25 13:21] LABS: BHCG - Serum Negative (NEGATIVE); Pregs Control Bar Appear? YES (CONTROL BAR)
[2021-04-25 13:25] LABS: ALT (SGPT) 14 U/L (8-55); AST (SGOT) 15 U/L (5-34); Albumin 3.8 g/dL (3.5-5.0); Alkaline Phosphatase 82 U/L (40-110); Anion Gap 13 mmol/L (10-20); BUN (Urea Nitrogen) 18 mg/dL (7.0-18.7); Bilirubin, Total 0.4 mg/dL (0.2-1.2); Calc. Creatinine Clearance 0 mL/min (70-130); Calcium 9.1 mg/dL (7.8-10.44); Carbon Dioxide 22 mmol/L (22-29); Chloride 103 mmol/L (98-107); Globulin 3.8 g/dL (2.4-3.5); Glucose 130 mg/dL (70-105); Lipase 42 U/L (8-78); Potassium 3.3 mmol/L (3.5-5.1); Protein, Total 7.6 g/dL (6.0-8.3); Sodium 135 mmol/L (136-145)
[2021-04-25 13:26] LABS: #Eosinphils 0.1 thou/uL (0.0-0.7); #Lymphocytes 1.9 thou/uL (1.20-3.40); #Monocytes 0.7 thou/uL (0.11-0.59); #Neutrophils 2.1 thou/uL (1.40-6.50); %Basophils 0.6 % (0.0-1.0); %Eosinophils 1.3 % (0.0-10.0); %Lymphocytes 39.6 % (21.0-51.0); %Monocytes 13.6 % (0.0-10.0); %Neutrophils 44.9 % (42.0-75.0); Hemoglobin 12.2 g/dL (12.0-16.0); Mean Corpuscular Hemoglobin 24.1 pg (27.0-31.0); Mean Corpuscular Volume 77.5 fL (78.0-98.0); Mean Platelet Volume 10.2 fL (7.4-10.4); Platelet Count 227 thou/uL (130-400); RBC Distribution Width 14.3 % (11.5-14.5); Red Blood Cell (RBC) Count 5.09 mill/uL (4.20-5.40); White Blood Cell (WBC) Count 4.7 thou/uL (4.8-10.8)
[2021-04-25 14:06] LABS: SARS-CoV-2 NAA Rapid Test DETECTED (NotDetected)
== END 2021-04-25 15:16 | disposition home or self-care (01) ==
LOC: NAV ERS 12:24
DX: U07.1 COVID-19 (principal); R10.12 Left upper quadrant pain; I10 Essential (primary) hypertension; E11.9 Type 2 diabetes mellitus without complications; Z79.4 Long term (current) use of insulin
CPT/HCPCS: 71046; 74176; 80053; 83605; 83690; 84484; 84703; 85025; 85610; 85730; 96365; 96375; C9113; J2550; J3490; J7050; U0002

== ENCOUNTER 2021-08-06 16:41 | Emergency (ER) | payer BC | END 2021-08-06 17:15 | disposition home or self-care (01) | LOC: NAV ERS 16:41 | DX: M25.551 Pain in right hip (principal); M32.9 Systemic lupus erythematosus, unspecified; E11.9 Type 2 diabetes mellitus without complications; Z79.4 Long term (current) use of insulin; I11.0 Hypertensive heart disease with heart failure; I50.9 Heart failure, unspecified; Z79.899 Other long term (current) drug therapy | CPT/HCPCS: 93005 ==

== ENCOUNTER 2021-09-03 13:02 | Emergency (ER) | payer BC ==
[2021-09-03] MEDS ORDERED: Ketorolac Tromethamine 30 MG/ML VIAL ONE (13:27)
[2021-09-03] MEDS ORDERED: Cyclobenzaprine 10 MG TAB ONE (13:36)
[2021-09-03] MEDS ORDERED: Acetaminophen/Codeine 30-300mg Tablet ONE (13:36)
== END 2021-09-03 13:45 | disposition home or self-care (01) ==
LOC: NAV ERS 13:02
DX: M54.31 Sciatica, right side (principal); E11.9 Type 2 diabetes mellitus without complications; I11.0 Hypertensive heart disease with heart failure; I50.9 Heart failure, unspecified; Z79.899 Other long term (current) drug therapy; Z79.84 Long term (current) use of oral hypoglycemic drugs; Z79.52 Long term (current) use of systemic steroids
CPT/HCPCS: 96372; 99283; J1885

== ENCOUNTER 2021-10-19 20:58 | Emergency (ER) | payer BC ==
[2021-10-19] MEDS ORDERED: methylPREDNISolone Sod Succ/PF 125 MG/2 ML VIAL ONE (21:35)
== END 2021-10-19 21:53 | disposition home or self-care (01) ==
LOC: NAV ERS 20:58
DX: M54.12 Radiculopathy, cervical region (principal); E11.9 Type 2 diabetes mellitus without complications; I11.0 Hypertensive heart disease with heart failure; I50.9 Heart failure, unspecified; Z79.4 Long term (current) use of insulin; Z79.899 Other long term (current) drug therapy
CPT/HCPCS: 96372; 99283; J2930

== ENCOUNTER 2022-01-28 11:06 | Emergency (ER) | payer BC ==
[2022-01-28 12:23] LABS: #Eosinphils 0.1 thou/uL (0.0-0.7); #Lymphocytes 1.1 thou/uL (1.20-3.40); #Monocytes 0.4 thou/uL (0.11-0.59); #Neutrophils 2.4 thou/uL (1.40-6.50); %Basophils 0.3 % (0.0-1.0); %Lymphocytes 28.3 % (21.0-51.0); %Monocytes 9.3 % (0.0-10.0); %Neutrophils 59.2 % (42.0-75.0); Hemoglobin 10.9 g/dL (12.0-16.0); Mean Corpuscular HGB CONC 30.5 g/dL (32.0-36.0); Mean Corpuscular Hemoglobin 24.3 pg (27.0-31.0); Mean Corpuscular Volume 79.7 fL (78.0-98.0); Mean Platelet Volume 8.2 fL (7.4-10.4); Platelet Count 169 thou/uL (130-400); RBC Distribution Width 14.3 % (11.5-14.5)
[2022-01-28 12:36] LABS: ALT (SGPT) 16 U/L (8-55); AST (SGOT) 22 U/L (5-34); Alkaline Phosphatase 107 U/L (40-110); Anion Gap 15 mmol/L (10-20); BUN (Urea Nitrogen) 9 mg/dL (7.0-18.7); Bilirubin, Total 0.8 mg/dL (0.2-1.2); Calc. Creatinine Clearance 0 mL/min (70-130); Calcium 9.4 mg/dL (7.8-10.44); Carbon Dioxide 26 mmol/L (22-29); Chloride 104 mmol/L (98-107); Estimated GFR 67; Globulin 3.8 g/dL (2.4-3.5); Glucose 102 mg/dL (70-105); Lipase 18 U/L (8-78); Potassium 3.6 mmol/L (3.5-5.1); Protein, Total 7.8 g/dL (6.0-8.3); Sodium 141 mmol/L (136-145)
[2022-01-28 13:02] LABS: Bilirubin Negative (Negative); Blood, Urine Negative (Negative); Glucose, Urine (Dipstick) Negative (Negative); Ketone, Urine Negative (Negative); Leukocyte Negative (Negative); Nitrite Negative (Negative); Protein, Urine (Dipstick) Negative (Neg-Trace)
[2022-01-28 13:13] LABS: Clarity Hazy (Clear)
[2022-01-28 13:17] LABS: Pregnancy Test - Urine (BHCG) Negative (Negative); Pregu Control Background? CLEAR/WHITE (CLR/WHITE); Pregu Control Bar Appear? YES (CONTROL BAR)
== END 2022-01-28 13:30 | disposition home or self-care (01) ==
LOC: NAV ERS 11:06
DX: A08.4 Viral intestinal infection, unspecified (principal); E11.9 Type 2 diabetes mellitus without complications; I11.0 Hypertensive heart disease with heart failure; I50.9 Heart failure, unspecified; Z79.899 Other long term (current) drug therapy; Z79.4 Long term (current) use of insulin
CPT/HCPCS: 80053; 81003; 81025; 83690; 85025; 99284

== ENCOUNTER 2022-03-06 16:22 | Emergency (ER) | payer BC ==
[2022-03-06] MEDS ORDERED: Gentamicin 80 MG/2 ML VIAL ONE (18:18)
[2022-03-06] MEDS ORDERED: Gentamicin Ophth Soln 0.3% 5 ml Bottle ONE (18:19)
== END 2022-03-06 18:35 | disposition home or self-care (01) ==
LOC: NAV ERS 16:22
DX: S02.5XXA Fracture of tooth (traumatic), initial encounter for closed fracture (principal); S00.93XA Contusion of unspecified part of head, initial encounter; H53.9 Unspecified visual disturbance; E11.9 Type 2 diabetes mellitus without complications; I10 Essential (primary) hypertension; Z79.4 Long term (current) use of insulin; Z79.899 Other long term (current) drug therapy; W19.XXXA Unspecified fall, initial encounter
CPT/HCPCS: 70450; 70486; 72125; J1580

== ENCOUNTER 2022-03-15 20:52 | Emergency (ER) | payer BC ==
[2022-03-15 21:19] LABS: #Eosinphils 0.2 thou/uL (0.0-0.7); #Lymphocytes 1.3 thou/uL (1.20-3.40); #Monocytes 0.4 thou/uL (0.11-0.59); #Neutrophils 2.5 thou/uL (1.40-6.50); %Basophils 0.5 % (0.0-1.0); %Eosinophils 3.5 % (0.0-10.0); %Lymphocytes 30.3 % (21.0-51.0); %Monocytes 9.4 % (0.0-10.0); %Neutrophils 56.3 % (42.0-75.0); Hemoglobin 10.7 g/dL (12.0-16.0); Mean Corpuscular HGB CONC 30.6 g/dL (32.0-36.0); Mean Corpuscular Hemoglobin 24.2 pg (27.0-31.0); Mean Corpuscular Volume 79.2 fl (78.0-98.0); Mean Platelet Volume 7.5 fL (7.4-10.4); Platelet Count 148 10x3/uL (130-400); RBC Distribution Width 14.3 % (11.5-14.5); White Blood Cell (WBC) Count 4.4 10x3/uL (4.8-10.8)
[2022-03-15 21:33] LABS: ALT (SGPT) 17 U/L (8-55); AST (SGOT) 19 U/L (5-34); Albumin 3.8 g/dL (3.5-5.0); Alkaline Phosphatase 107 U/L (40-110); Anion Gap 14 mmol/L (10-20); BUN (Urea Nitrogen) 13 mg/dL (7.0-18.7); Bilirubin, Total 0.4 mg/dL (0.2-1.2); Calc. Creatinine Clearance 0 mL/min (70-130); Calcium 9.2 mg/dL (7.8-10.44); Carbon Dioxide 26 mmol/L (22-29); Chloride 108 mmol/L (98-107); Estimated GFR 70; Globulin 3.6 g/dL (2.4-3.5); Glucose 87 mg/dL (70-105); Potassium 3.7 mmol/L (3.5-5.1); Protein, Total 7.4 g/dL (6.0-8.3); Sodium 144 mmol/L (136-145)
[2022-03-15] MEDS ORDERED: Ketorolac Tromethamine 30 MG/ML VIAL ONE (22:03)
== END 2022-03-15 22:23 | disposition home or self-care (01) ==
LOC: NAV ERS 20:52
DX: R07.89 Other chest pain (principal); M79.10 Myalgia, unspecified site; E11.9 Type 2 diabetes mellitus without complications; I10 Essential (primary) hypertension; Z79.4 Long term (current) use of insulin; Z79.899 Other long term (current) drug therapy
CPT/HCPCS: 80053; 83880; 84484; 85025; 93005; 96374; J1885

== ENCOUNTER 2022-07-09 19:29 | Emergency (ER) | payer OTHER ==
[2022-07-09] MEDS ORDERED: Ondansetron PF 4 MG/2 ML Vial ONE (20:09)
[2022-07-09] MEDS ORDERED: Mag-Al Plus 1200 MG/1200 MG/120 MG/30 ML UDCUP ONE (20:09)
[2022-07-09] MEDS ORDERED: Lidocaine Viscous Sol 2% 15 ml UD Cup ONE (20:09)
[2022-07-09] MEDS ORDERED: Pantoprazole 40 MG VIAL ONE (20:09)
[2022-07-09 20:24] LABS: Bilirubin Negative (Negative); Blood, Urine Negative (Negative); Clarity Cloudy (Clear); Glucose, Urine (Dipstick) Negative (Negative); Ketone, Urine Trace mg/dL (Negative); Leukocyte Negative (Negative); Nitrite Negative (Negative); Protein, Urine (Dipstick) 30 mg/dL (Neg-Trace); Urobilinogen 0.2 mg/dL (Less than 2)
[2022-07-09 20:26] LABS: Specific Gravity, Urine 1.034 (1.002-1.036)
[2022-07-09 20:28] LABS: #Eosinphils 0.1 thou/uL (0.0-0.7); #Lymphocytes 1.1 thou/uL (1.20-3.40); #Monocytes 0.4 thou/uL (0.11-0.59); #Neutrophils 3.1 thou/uL (1.40-6.50); %Basophils 0.8 % (0.0-1.0); %Eosinophils 2.6 % (0.0-10.0); %Lymphocytes 22.4 % (21.0-51.0); %Monocytes 8.3 % (0.0-10.0); %Neutrophils 65.9 % (42.0-75.0); Hemoglobin 11.1 g/dL (12.0-16.0); Mean Corpuscular HGB CONC 29.9 g/dL (32.0-36.0); Mean Corpuscular Hemoglobin 23.2 pg (27.0-31.0); Mean Corpuscular Volume 77.6 fl (78.0-98.0); Mean Platelet Volume 7.2 fL (7.4-10.4); Platelet Count 160 10x3/uL (130-400); RBC Distribution Width 15.4 % (11.5-14.5); Red Blood Cell (RBC) Count 4.77 mill/uL (4.20-5.40); White Blood Cell (WBC) Count 4.8 10x3/uL (4.8-10.8)
[2022-07-09 20:35] LABS: Bacteria/HPF 2+ HPF (None Seen); RBC/HPF 0-3 HPF (0-3); Squamous Epithelial Greater than 50 HPF (0-3); WBC/HPF 0-3 HPF (0-3)
[2022-07-09 20:36] LABS: Mucous/LPF 2+ LPF (<2+)
[2022-07-09 20:43] LABS: ALT (SGPT) 15 U/L (8-55); AST (SGOT) 16 U/L (5-34); Albumin 4.1 g/dL (3.5-5.0); Alkaline Phosphatase 108 U/L (40-110); Anion Gap 15 mmol/L (10-20); BUN (Urea Nitrogen) 14 mg/dL (7.0-18.7); Bilirubin, Total 0.4 mg/dL (0.2-1.2); Calc. Creatinine Clearance 0 mL/min (70-130); Calcium 9.2 mg/dL (7.8-10.44); Carbon Dioxide 24 mmol/L (22-29); Chloride 106 mmol/L (98-107); Estimated GFR 67; Globulin 3.8 g/dL (2.4-3.5); Glucose 93 mg/dL (70-105); Lipase 39 U/L (8-78); Potassium 3.6 mmol/L (3.5-5.1); Protein, Total 7.9 g/dL (6.0-8.3); Sodium 141 mmol/L (136-145)
== END 2022-07-09 21:15 | disposition home or self-care (01) ==
LOC: NAV ERS 19:29
DX: R11.2 Nausea with vomiting, unspecified (principal); R50.9 Fever, unspecified; E11.9 Type 2 diabetes mellitus without complications; I11.0 Hypertensive heart disease with heart failure; I50.9 Heart failure, unspecified; Z79.899 Other long term (current) drug therapy; Z79.4 Long term (current) use of insulin; Z20.822 Contact with and (suspected) exposure to COVID-19
CPT/HCPCS: 36415; 71045; 80053; 81003; 81015; 83605; 83690; 84484; 85025; 87804; 93005; 96374; 96375; C9113; J2405; U0003; U0005

== ENCOUNTER 2023-02-27 18:03 | Emergency (ER) | payer OTHER ==
[2023-02-27] MEDS ORDERED: Bacitracin 1 PK ONE (18:43)
== END 2023-02-27 18:43 | disposition home or self-care (01) ==
LOC: NAV ERS 18:03
DX: S80.811A Abrasion, right lower leg, initial encounter (principal); G57.93 Unspecified mononeuropathy of bilateral lower limbs; E11.9 Type 2 diabetes mellitus without complications; Z79.4 Long term (current) use of insulin; I11.0 Hypertensive heart disease with heart failure; I50.9 Heart failure, unspecified; Z79.899 Other long term (current) drug therapy; W57.XXXA Bitten or stung by nonvenomous insect and other nonvenomous arthropods, initial encounter
CPT/HCPCS: 99283

== ENCOUNTER 2023-10-05 11:13 | Emergency (ER) | payer OTHER ==
[2023-10-05] MEDS ORDERED: Ketorolac Tromethamine 60 MG/2 ML VIAL ONE (11:58)
[2023-10-05] MEDS ORDERED: Dexamethasone 4 mg/ml Vial ONE (11:58)
[2023-10-05] MEDS ORDERED: Amoxicillin/Potassium Clav 875 MG TAB ONE (11:58)
== END 2023-10-05 12:20 | disposition home or self-care (01) ==
LOC: NAV ERS 11:13
DX: H92.02 Otalgia, left ear (principal); H60.92 Unspecified otitis externa, left ear; K02.9 Dental caries, unspecified; K04.7 Periapical abscess without sinus; E11.9 Type 2 diabetes mellitus without complications; I11.0 Hypertensive heart disease with heart failure; I50.9 Heart failure, unspecified; Z79.899 Other long term (current) drug therapy
CPT/HCPCS: 96372; 99283; J1100; J1885

== ENCOUNTER 2023-12-26 09:03 | Emergency (ER) | payer OTHER ==
[2023-12-26] MEDS ORDERED: Benzonatate 100 MG CAP ONE (09:38)
[2023-12-26] MEDS ORDERED: Ibuprofen 800 MG TAB ONE (09:38)
[2023-12-26 10:14] LABS: SARS-CoV-2 E Target Negative; SARS-CoV-2 N2 Target Negative; SARS-CoV-2 NAA Rapid Test Not Detected (NotDetected); SARS-CoV-2 RdRP gene Negative
== END 2023-12-26 10:35 | disposition home or self-care (01) ==
LOC: NAV ERS 09:03
DX: J06.9 Acute upper respiratory infection, unspecified (principal); I11.0 Hypertensive heart disease with heart failure; I50.9 Heart failure, unspecified; E11.9 Type 2 diabetes mellitus without complications; Z79.899 Other long term (current) drug therapy
CPT/HCPCS: 87804; 99283; U0002

== ENCOUNTER 2023-12-27 16:51 | Emergency (ER) | payer OTHER ==
[2023-12-27] MEDS ORDERED: Ipratropium/Albuterol 3 ML NEB ONE (17:51)
[2023-12-27] MEDS ORDERED: predniSONE 20 MG TAB ONE (17:51)
== END 2023-12-27 18:29 | disposition home or self-care (01) ==
LOC: NAV ERS 16:51
DX: J06.9 Acute upper respiratory infection, unspecified (principal); E11.9 Type 2 diabetes mellitus without complications; I11.0 Hypertensive heart disease with heart failure; I50.9 Heart failure, unspecified
CPT/HCPCS: 71046; 93005; J7512; J7620

== ENCOUNTER 2025-03-19 18:41 | Emergency (ER) | payer OTHER ==
[2025-03-19] MEDS ORDERED: Ibuprofen 800 MG TAB ONE (19:17)
== END 2025-03-19 19:47 | disposition home or self-care (01) ==
LOC: NAV ERS 18:41
DX: B34.9 Viral infection, unspecified (principal); E11.9 Type 2 diabetes mellitus without complications; I10 Essential (primary) hypertension; K21.9 Gastro-esophageal reflux disease without esophagitis; Z79.899 Other long term (current) drug therapy; Z79.82 Long term (current) use of aspirin
CPT/HCPCS: 87428; 99283